=== PATIENT | female | born 1980 | race Caucasian/White ===

== ENCOUNTER 2017-05-22 13:07 | Emergency (ER) | payer BC ==
[~2017-05-22] VITALS: Ht 162.6 cm; Wt 55.9 kg
[2017-05-22 13:18] VITALS: BP 140/79; TEMP 98.4
[2017-05-22] MEDS ORDERED: ZEGERID 20 MG-11 CAP (13:21)
[2017-05-22] MEDS ORDERED: CARAFATE 1GM1 G PO (13:21)
[2017-05-22] MEDS ORDERED: ADDERALL XR 10M10 MG PO (13:22)
[2017-05-22] MEDS ORDERED: BUSPAR10 MG PO (13:22)
[2017-05-22] MEDS ORDERED: ZOFRAN 4MG T4 MG/TAB PO (13:22)
[2017-05-22] MEDS ORDERED: ULTRAM 50MG TAB50 MG PO (15:18)
[2017-05-22] MEDS ORDERED: PERCOCET 325 MG1 TA2 PO (15:18)
[2017-05-22] MEDS ORDERED: ZOFRAN8 MG PO (15:18)
[2017-05-22] MEDS ORDERED: PRIL40 PO (15:18)
[2017-05-22 15:26] LABS: BASO % 0.3 % (0.0-2.0); EOS % 0.1 % (0-4.0); GRAN # 5.1 (1.4-6.5); GRAN % 72.2 % (42.2-75.2); HEMATOCRIT 37.8 % (37.0-47.0); HEMOGLOBIN 13.1 g/dl (12.5-16.0); LYMPH # 1.6 (1.2-3.4); LYMPH % 22.8 % (20.0-51.0); MEAN CELL VOLUME 93 fl (80.0-100.0); MEAN CORPUSCULAR HEMOGLOBIN 32 pg (27.0-31.0); MEAN CORPUSCULAR HGB CONC 35 g/dl (33.0-37.0); MEAN PLATELET VOLUME 9.1 fl (7.4-10.4); MONO # 0.3 (0.1-0.6); MONO % 4.3 % (1.7-9.3); PLATELET COUNT 239 K/mm3 (130-400); RED BLOOD COUNT 4.06 M/mm3 (4.10-5.30); REDCELL DISTRIBUTION WIDTH-CV 13.3 % (11.5-14.5); WHITE BLOOD COUNT 7.1 K/mm3 (4.8-10.8)
[2017-05-22 15:42] LABS: ADJUSTED CALCIUM 9.4 mg/dL (8.4-10.2); BILIRUBIN,TOTAL 0.7 mg/dL (0.0-1.0); CALCIUM 10.2 mg/dL (8.4-10.2); CREATININE, serum 0.62 mg/dL (0.52-1.25); POTASSIUM 3.5 mmol/L (3.4-5.0); TOTAL PROTEIN 8.1 gm/dL (6.4-8.2)
[2017-05-22 16:31] VITALS: PULSE 103
[2017-05-22] MEDS ORDERED: PROTONIX 40MG T40 MG PO (16:35)
== END 2017-05-22 16:54 | disposition home or self-care (01) ==
LOC: COL.ER 13:07
PROVIDERS: Emergency Medicine
DX: R10.13 Epigastric pain (principal); K21.9 Gastro-esophageal reflux disease without esophagitis; Z90.710 Acquired absence of both cervix and uterus; Z90.49 Acquired absence of other specified parts of digestive tract; Z90.89 Acquired absence of other organs; Z87.19 Personal history of other diseases of the digestive system
CPT/HCPCS: C9113; J1170; J1885; J2405; J7030